=== PATIENT | female | born 1965 | race Caucasian/White ===

== ENCOUNTER → 2016-11-09 | Outpatient (CLI) | payer OTHER | LOC: HEART 5 08:29 | DX: I48.0 Paroxysmal atrial fibrillation (principal); I20.9 Angina pectoris, unspecified | CPT/HCPCS: 78451; 78452; 93306; A9502 ==

== ENCOUNTER → 2016-12-08 | Outpatient (CLI) | payer OTHER | LOC: HEART 5 12-02 08:00 | DX: R00.2 Palpitations (principal); I48.0 Paroxysmal atrial fibrillation ==

== ENCOUNTER → 2021-06-22 | Outpatient (CLI) | payer OTHER | LOC: HEART 5 09:38 | DX: I50.30 Unspecified diastolic (congestive) heart failure (principal); R60.0 Localized edema; R06.02 Shortness of breath | CPT/HCPCS: 93306 ==